=== PATIENT | female | born 1965 | race Caucasian/White ===

== ENCOUNTER → 2017-03-10 13:17 | Outpatient (CLI) | payer BC ==
[2014-03-10 11:18] VITALS: BMI 31.5
[~2017-03-10 13:17] MED LIST: COLACE100 MG PO; DICLOFENAC SODI50 MG PO; HYDROCODON-ACE1 EAC7 PO; PRAVACHOL20 MG PO; PRILOSEC20 MG PO; VALIUM5 MG PO
== END | disposition home or self-care (01) ==
LOC: D.MAMMO 08:30
DX: Z85.3 Personal history of malignant neoplasm of breast (principal); Z12.31 Encounter for screening mammogram for malignant neoplasm of breast

== ENCOUNTER → 2018-03-09 13:03 | Outpatient (CLI) | payer BC ==
[2014-03-10 11:18] VITALS: BMI 31.5
== END | disposition home or self-care (01) ==
LOC: D.US 13:03
DX: Z83.49 Family history of other endocrine, nutritional and metabolic diseases (principal)

== ENCOUNTER → 2018-03-23 19:57 | Outpatient (CLI) | payer BC ==
[2014-03-10 11:18] VITALS: BMI 31.5
== END | disposition home or self-care (01) ==
LOC: D.MAMMO 13:30
DX: Z12.31 Encounter for screening mammogram for malignant neoplasm of breast (principal)

== ENCOUNTER 2019-02-08 11:00 | Outpatient (CLI) | payer BC ==
[2014-03-10 11:18] VITALS: BMI 31.5
== END 2019-02-08 11:30 | disposition home or self-care (01) ==
LOC: D.MAMMO 11:00
PROVIDERS: ATTEND Nurse Practitioner Women's Health
DX: Z12.31 Encounter for screening mammogram for malignant neoplasm of breast (principal)

== ENCOUNTER 2020-03-05 08:00 | Outpatient (CLI) | payer BC ==
[2014-03-10 11:18] VITALS: BMI 31.5
== END 2020-03-05 23:59 | disposition home or self-care (01) ==
LOC: D.MAMMO 08:00
PROVIDERS: ATTEND Nurse Practitioner Women's Health
DX: Z12.31 Encounter for screening mammogram for malignant neoplasm of breast (principal)